=== PATIENT | male | born 1970 | race Caucasian/White ===

== ENCOUNTER 2021-10-14 06:07 | Inpatient (IN) | payer MEDICAID, OTHER ==
[~2021-10-14] VITALS: Ht 188 cm; Wt 106.6 kg
[2021-10-14] MEDS ORDERED: LORAZEPAM INJ 2 MG/ML VIAL IV ONE ×3 (07:00→10:30)
[2021-10-14] MEDS ORDERED: IV NS 0.9% 1,000 ML IV ONE (07:00)
[2021-10-14] MEDS ORDERED: LORAZEPAM INJ 2 MG/ML VIAL ONE ×3 (07:08→10:13)
--- NOTE | 2021-10-14 07:10 | NUR ---
ASSESSED PT ON BED AWAKE AND ALERT, AAXO4 MAORI SPEAKING ONLY, NOT IN RESPIRATORY DISTRESS, V/S STABLE, KEPT RESTED AND COMFORTABLE. WILL CONTINUE TO MONITOR.
--- NOTE | 2021-10-14 07:22 | NUR ---
BLOOD SENT TO LAB
[2021-10-14 07:35] LABS: BASOPHILS % (AUTO) 0.1 % (0.0-2.0); HEMATOCRIT 45 % (39-51); HEMOGLOBIN 15.5 g/dL (13.5-17.5); LYMPHOCYTES # (AUTO) 0.6 K/uL (0.8-4.8); LYMPHOCYTES % (AUTO) 3.4 % (20.0-44.0); MEAN CORPUSCULAR HGB CONC 35 g/dl (31.0-36.0); MEAN CORPUSCULAR VOLUME 91 fL (80-96); MONOCYTES # (AUTO) 1.4 K/uL (0.1-1.30); MONOCYTES % (AUTO) 7.6 % (2.0-12.0); NEUTROPHILS % (AUTO) 88.9 % (43.0-81.0); PLATELET COUNT (AUTO) 255 K/uL (150-450); RED BLOOD CELL COUNT(AUTO) 4.91 MIL/uL (4.5-6.0)
--- NOTE | 2021-10-14 07:50 | NUR ---
CALLED [facility] AND THEY WILL FAX CT RESULTS FOR PT.
--- NOTE | 2021-10-14 07:53 | NUR ---
[facility] CALLED AND NOTIFIED THAT THE PT HAS NOT BEEN THERE SINCE 2014
[2021-10-14 07:54] LABS: ALANINE AMINOTRANSFERASE 474 U/L (12-78); ALBUMIN 4.2 g/dL (3.4-5.0); ALCOHOL, BLOOD < 3 mg/dL (0-0); ALKALINE PHOSPHATASE 94 U/L (46-116); ASPARTATE AMINOTRANSFERASE 1780 U/L (15-37); BILIRUBIN,DIRECT 0.3 mg/dL (0.0-0.2); BILIRUBIN,TOTAL 1.8 mg/dL (0.2-1.0); CALCIUM, SERUM 8.4 mg/dL (8.5-10.1); CARBON DIOXIDE 20 mmol/L (21-32); CHLORIDE 108 mmol/L (98-107); CREATININE 2.6 mg/dL (0.6-1.3); GLUCOSE 98 mg/dL (74-106); POTASSIUM 3.9 mmol/L (3.5-5.1); SODIUM SERUM 143 mmol/L (136-145); TOTAL PROTEIN, SERUM 7.5 g/dL (6.4-8.2); UREA NITROGEN, BLOOD 32 mg/dL (7-18)
--- NOTE | 2021-10-14 07:54 | NUR ---
UNABLE TO PROVIDE URINE AT THIS TIME
[2021-10-14 07:57] LABS: ACETAMINOPHEN < 10 ug/ml (10-30)
--- NOTE | 2021-10-14 08:39 | NUR ---
PT IS WHEELED TO CT SCAN VIA GURNEY WITH [employer].
--- NOTE | 2021-10-14 08:40 | NUR ---
TAKEN TO CT
--- NOTE | 2021-10-14 08:48 | NUR ---
THE PATIENT IS TAKEN TO CT PER POLICY
--- NOTE | 2021-10-14 09:19 | NUR ---
PER DR ROJAS NOT TO ADMINISTER ATIVAN 2 MG IV, INSTEAD RECEIEVED AN ORDER OF ATIVAN 2 MG IV PUSH ONCE. THE ORDER IS READ BACK, VERIFIED. NOTED AND CARRIED OUT.
[2021-10-14] MEDS ORDERED: LORAZEPAM INJ 2 MG/ML VIAL IM ONE (09:30)
--- NOTE | 2021-10-14 09:30 | NUR ---
THE PATIENT IS TAKEN BACK FROM CT PER POLICY
[2021-10-14] MEDS ORDERED: IV LR 1000 ML 1,000 ML IV ONE (10:00)
[2021-10-14] MEDS ORDERED: ZIPRASIDONE MESYLATE 20 MG/VIAL VIAL IM ONE ×2 (10:30→10:31)
[2021-10-14 10:54] LABS: BILIRUBIN,URINE SMALL (NEGATIVE); COLOR,URINE BROWN (YELLOW); LEUKOCYTE ESTERASE ,URINE NEGATIVE (NEGATIVE); NITRITE, URINE NEGATIVE (NEGATIVE); PROTEIN,URINE 100 mg/dl (NEGATIVE); UGLUCOSE NEGATIVE (NEGATIVE); UROBILINOGEN,URINE 0.2 EU/dL (0.2)
[2021-10-14 11:15] LABS: BACTERIA,URINE Few /HPF (None Seen); RBC,URINE 21-50 /HPF (0-2); SQUAMOUS EPITHELIAL CELL,UR Few /HPF (None Seen)
--- NOTE | 2021-10-14 11:15 | NUR ---
needs telemetry bed. nursing dispatch supervisor aware.
--- NOTE | 2021-10-14 11:56 | NUR ---
THE PATIENT IS SLEEPING IN ER BED #12. EASILY RESPONSIVE TO VERBAL STIMULI. RESPIRATION REGULAR AND UNLABORED. REMAINS ATTACHED TO THE MONITOR.
[2021-10-14] MEDS ORDERED: IV NS 0.9% 1,000 ML IV SCH (13:00)
[2021-10-14] MEDS ORDERED: MAG HYDROX/AL HYDROX/SIMETH 30 ML UDC PO PRN (13:00)
[2021-10-14] MEDS ORDERED: ONDANSETRON HCL/PF 4 MG/2 ML VIAL IVP PRN (13:00)
[2021-10-14] MEDS: ASPIRIN EC 81 MG TABLET.DR PO SCH (13:00)
[2021-10-14] MEDS ORDERED: MAGNESIUM HYDROXIDE 30 ML UDC PO PRN (13:00)
[2021-10-14] MEDS ORDERED: LORAZEPAM INJ 2 MG/ML VIAL IV PRN (13:00)
[2021-10-14] MEDS: THIAMINE HCL 100 MG TABLET PO SCH (13:00)
[2021-10-14 13:15] VITALS: BP 102/62
--- NOTE | 2021-10-14 13:16 | NUR ---
report given to Mary IRBY
--- NOTE | 2021-10-14 13:17 | NUR ---
THE PATIENT IS TRANSFERED TO ROOM 327-2 IN STABLE CONDITION AND PER POLICY.
--- NOTE | 2021-10-14 15:00 | NUR ---
HAND IRONERFILLER BLENDER NOTES PATIENT ADMITTED TO UNIT AND CAME FROM ER VIA GURNEY. PATIENT CAME FROM SNF, POLICE OFFICERS AT BED SIDE. A/O X1, LETHARGIC. V/S TAKEN, STABLE. NO S/S OF PAIN NOTED AT THIS TIME. ON 3L OXYGEN VIA NC, NO DISTRESS OR SHORTNESS OF BREATH NOTED. IV LFA #20G, IV NS @ 150ML/HR, INTACT AND PATENT. PATIENT HAS EXTERNAL RUG CUTTER HELPER WITH CURRENT READING OF S.R. AND HR OF 85. SKIN ASSESSMENT DONE AND PICTURES TAKEN. FALL AND SAFETY MEASURE IN PLACE, BED ALARM ON, BED IN LOW AND LOCK POSITION, CALL LIGHT AND TABLE WITHIN EASY REACH, SIDE RAILS UP X2. WILL CONTINUE TO MONITOR.
--- NOTE | 2021-10-14 15:17 | NUR ---
SUBSCRIPTION CLERK NOTES UNABLE TO GIVE PO MEDS DUE TO PATIENT BEING LETHARGIC.
[2021-10-14 16:00] VITALS: BP 118/76
[2021-10-14] MEDS ORDERED: IV LR 500 ML IV ONE (16:00)
[2021-10-14] MEDS: ACETAMINOPHEN 325 MG TABLET PO PRN (16:45)
--- NOTE | 2021-10-14 19:20 | NUR ---
MEDICAL TRANSLATOR CLOSING NOTES PATIENT IS IN BED RESTING AWAKE. A/O X3, PATIENT STILL LETHARGIC. POLICE OFFICES AT BED SIDE. NO S/S OF PAIN NOTED AT THIS TIME. ON 3L OXYGEN VIA NC, NO DISTRESS OR SHORTNESS OF BREATH NOTED. IV LFA #20G, IV NS @ 150ML/HR, INTACT AND PATENT. PATIENT HAS EXTERNAL PATIENT PORTAL REPRESENTATIVE WITH CURRENT READING OF S.R. AND HR OF 86. FALL AND SAFETY MEASURE IN PLACE, BED ALARM ON, BED IN LOW AND LOCK POSITION, CALL LIGHT AND TABLE WITHIN EASY REACH, SIDE RAILS UP X2. WILL ENDORSE TO VACUUM CLEANER MECHANIC.
--- NOTE | 2021-10-14 19:30 | NUR ---
EMPLOYMENT LAW ATTORNEY OPENING NOTES RECEIVED PATIENT AWAKE IN BED. A/O X3. IN CUSTODY, POLICE OFFICERS AT BEDSIDE. NO S/S OF PAIN NOTED AT THIS TIME. ON 3 LPM OXYGEN VIA NC, NO SOB OR S/S OF RESPIRATORY DISTRESS NOTED. IV ACCESS LFA #20G, RUNNING LR @ 175 ML/HR, INTACT AND PATENT. EXTERNAL MONORAIL OPERATOR READING SR 85 BPM. SAFETY PRECAUTIONS IN PLACE. BED IN LOWEST LOCKED POSITION, HOB ELEVATED, SIDE RAILS UP X2, AND CALL LIGHT AND TABLE WITHIN REACH. WILL CONTINUE TO MONITOR.
[2021-10-14 20:00] VITALS: BP 135/92
[2021-10-15] VITALS: BP 120/67
[2021-10-15 03:37] LABS: BILIRUBIN,URINE SMALL (NEGATIVE); COLOR,URINE YELLOW (YELLOW); LEUKOCYTE ESTERASE ,URINE NEGATIVE (NEGATIVE); NITRITE, URINE NEGATIVE (NEGATIVE); PH,URINE 5.5 (5.0-8.0); PROTEIN,URINE 100 mg/dl (NEGATIVE); UGLUCOSE NEGATIVE (NEGATIVE); UROBILINOGEN,URINE 0.2 EU/dL (0.2)
[2021-10-15 03:42] LABS: BACTERIA,URINE Few /HPF (None Seen); SQUAMOUS EPITHELIAL CELL,UR Few /HPF (None Seen); URINE AMORPHOUS URATE Many /HPF (None Seen)
[2021-10-15 03:52] LABS: CREATININE, URINE 108.4 MG/DL (30.0-125.0); URINE TOTAL PROTEIN 265.4 mg/dL (0-11.9)
[2021-10-15] MEDS: ACETAMINOPHEN 325 MG TABLET PO PRN ×2 (03:55→18:17)
--- NOTE | 2021-10-15 03:55 | NUR ---
BUTTER MELTER NOTES C/P ARTHRITIS PAIN,TYLENOL 650MG PO GIVE PER PATIENT REQUEST.
[2021-10-15 04:00] VITALS: BP 160/97
--- NOTE | 2021-10-15 04:00 | NUR ---
ATHLETIC EVENTS SCORER NOTES TELE MONITOR ON STANDBY,PATIENT REFUSED.
--- NOTE | 2021-10-15 06:15 | NUR ---
MARINE ERECTOR NOTES HOSPITALIST WAS PAGE IN REGARDS TO PATIENT URINALYSIS RESULT,WITH NEW ORDER NOTED AND CARRIED OUT.
[2021-10-15 06:16] LABS: EOSINOPHIL,URINE None Seen
--- NOTE | 2021-10-15 06:45 | NUR ---
GIS DATABASE ADMINISTRATOR NOTES TO START WITH ROCEPHIN 1 GM IV DAILY,REPEAT U/A,AND START IV NS AT 100ML/HR RATE ORDERED.
[2021-10-15] MEDS ORDERED: IV NS 0.9% 1,000 ML IV PRN (07:00)
--- NOTE | 2021-10-15 07:30 | NUR ---
SIMULATION TECHNICIAN OPENING NOTES RECEIVED PATIENT AWAKE IN BED. A/O X3 UNDER POLICE CUSTODY. NO S/S OF PAIN NOTED AT THIS TIME. ON 3 LPM OXYGEN VIA NC, NO SOB OR S/S OF RESPIRATORY DISTRESS NOTED. WITH IV ACCESS AT LFA #20GWITH IVF NS AT 100ML/HR INFUSING WELL, IV ACCESS IS INTACT AND PATENT. SAFETY PRECAUTIONS IN PLACE. BED IN LOWEST LOCKED POSITION, HOB ELEVATED, SIDE RAILS UP X2, AND CALL LIGHT AND TABLE WITHIN REACH. WILL CONTINUE TO MONITOR.
[2021-10-15] MEDS ORDERED: FOLIC ACID 1 MG TABLET ONE (07:46)
[2021-10-15] MEDS ORDERED: CEFTRIAXONE 1 G VIAL ONE (07:55)
[2021-10-15 08:00] VITALS: BP 150/90
[2021-10-15 08:02] LABS: BASOPHILS % (AUTO) 0.2 % (0.0-2.0); EOSINOPHILS % (AUTO) 0.1 % (0.0-6.0); HEMATOCRIT 41 % (39-51); HEMOGLOBIN 14.3 g/dL (13.5-17.5); LYMPHOCYTES # (AUTO) 0.6 K/uL (0.8-4.8); LYMPHOCYTES % (AUTO) 5.2 % (20.0-44.0); MEAN CORPUSCULAR HGB CONC 35 g/dl (31.0-36.0); MEAN CORPUSCULAR VOLUME 91 fL (80-96); MONOCYTES # (AUTO) 0.9 K/uL (0.1-1.30); MONOCYTES % (AUTO) 7.2 % (2.0-12.0); NEUTROPHILS # (AUTO) 10.7 K/uL (1.8-8.9); NEUTROPHILS % (AUTO) 87.3 % (43.0-81.0); PLATELET COUNT (AUTO) 216 K/uL (150-450); RED BLOOD CELL COUNT(AUTO) 4.53 MIL/uL (4.5-6.0); WHITE BLOOD COUNT (AUTO) 12.3 K/uL (4.3-11.0)
[2021-10-15] MEDS: FOLIC ACID 1 MG TABLET PO SCH (08:24)
[2021-10-15] MEDS: ASPIRIN EC 81 MG TABLET.DR PO SCH (08:24)
[2021-10-15] MEDS: CEFTRIAXONE 1 G in IV D5W 50 ML IV SCH (08:24)
[2021-10-15] MEDS: PANTOPRAZOLE 40 MG TABLET.DR PO SCH (08:24)
[2021-10-15] MEDS: THIAMINE HCL 100 MG TABLET PO SCH (08:24)
[2021-10-15 08:30] LABS: CALCIUM, SERUM 7.7 mg/dL (8.5-10.1); CREATININE 3.7 mg/dL (0.6-1.3); MAGNESIUM 3.2 mg/dL (1.8-2.4); PHOSPHORUS 4.4 mg/dL (2.5-4.9)
[2021-10-15] MEDS ORDERED: IV LR 1000 ML 1,000 ML IV ONE (10:00)
[2021-10-15 16:00] VITALS: BP 156/95
[2021-10-15] MEDS: METOPROLOL TARTRATE 50 MG TABLET PO SCH (18:17)
[2021-10-15] MEDS: AMLODIPINE BESYLATE 10 MG TABLET PO SCH (18:17)
--- NOTE | 2021-10-15 19:15 | NUR ---
NIGHT AUDITOR CLOSING NOTES PATIENT AWAKE IN BED. A/O X3 UNDER POLICE CUSTODY. NO S/S OF PAIN NOTED AT THIS TIME. ON ROOM AIR SATURATING WELL AT 99%. NO SOB OR S/S OF RESPIRATORY DISTRESS NOTED. WITH IV ACCESS AT LFA #20G SALINE LOCKED, IV ACCESS IS INTACT AND PATENT. SAFETY PRECAUTIONS IN PLACE. BED IN LOWEST LOCKED POSITION, HOB ELEVATED, SIDE RAILS UP X2, AND CALL LIGHT AND TABLE WITHIN REACH. WILL ENDORSE TO NEXT SHIFT FOR DAVID.
--- NOTE | 2021-10-15 19:30 | NUR ---
SLD EDUCATIONAL AIDE NOTES OFF TELE,ON STANDBY.ON BED ALERT,ORIENTED X3,WITH EPISODE OF CONFUSION.IN CUSTODY, 2 OFFICER AT BEDSIDE.RIGHT WRIST ON HANDCUFF,NOTED MULTIPLE BRUISING ON UPPER AND LOWER EXTREMITIES.SALINE LOCK LEFT FORE ARM INTACT AND PATENT.WILL CONTINU TO MONITOR STATUS.
[2021-10-15 20:00] VITALS: BP 162/100
[2021-10-15 20:49] VITALS: BP 162/105
[2021-10-16] VITALS: BP 155/104
[2021-10-16 00:54] VITALS: BP 155/104
[2021-10-16] MEDS: ACETAMINOPHEN 325 MG TABLET PO PRN ×2 (02:32→08:11)
[2021-10-16 04:00] VITALS: BP 143/84
--- NOTE | 2021-10-16 06:51 | NUR ---
FIRE CONTROL SYSTEM INSTALLER NOTES STILL REFUSING TELE MONITOR.MORE ALERT,PITTING EDEMA ON BOTH ARMS NOTED.BLOOD PRESSURE ON THE HIGH SIDE,PER COMMUNICATIONS EDITOR,MAY BENEFIT FROM HEMODIALYSIS.IN NO ACUTE DISTRESS
[2021-10-16 06:53] LABS: CALCIUM, SERUM 7.8 mg/dL (8.5-10.1); CARBON DIOXIDE 18 mmol/L (21-32); CHLORIDE 104 mmol/L (98-107); CREATININE 4.2 mg/dL (0.6-1.3); GLUCOSE 145 mg/dL (74-106); PHOSPHORUS 4.9 mg/dL (2.5-4.9); POTASSIUM 3.9 mmol/L (3.5-5.1); SODIUM SERUM 136 mmol/L (136-145); UREA NITROGEN, BLOOD 50 mg/dL (7-18)
[2021-10-16 06:57] LABS: BASOPHILS % (AUTO) 0.3 % (0.0-2.0); EOSINOPHILS % (AUTO) 2.2 % (0.0-6.0); HEMATOCRIT 36 % (39-51); HEMOGLOBIN 12.9 g/dL (13.5-17.5); LYMPHOCYTES # (AUTO) 0.9 K/uL (0.8-4.8); LYMPHOCYTES % (AUTO) 11.5 % (20.0-44.0); MEAN CORPUSCULAR HGB CONC 36 g/dl (31.0-36.0); MEAN CORPUSCULAR VOLUME 89 fL (80-96); MONOCYTES # (AUTO) 0.6 K/uL (0.1-1.30); MONOCYTES % (AUTO) 7.7 % (2.0-12.0); NEUTROPHILS # (AUTO) 6.3 K/uL (1.8-8.9); NEUTROPHILS % (AUTO) 78.3 % (43.0-81.0); PLATELET COUNT (AUTO) 181 K/uL (150-450); RED BLOOD CELL COUNT(AUTO) 4.05 MIL/uL (4.5-6.0)
--- NOTE | 2021-10-16 07:35 | NUR ---
OFFICE MACHINE INSPECTOR OPENING NOTES RECEIVED PT ON BED AWAKE, VERBALLY RESPONSIVE. ON ROOM AIR TOLERATING WELL, NO SOB NOTED. TELE ON STANDBY, PT STILL REFUSES. IN CUSTODY, 2 OFFICER AT BEDSIDE. RIGHT WRIST ON HANDCUFF, NOTED MULTIPLE BRUISING ON UPPER AND LOWER EXTREMITIES.SALINE LOCK LEFT FOREARM INTACT AND PATENT. SAFETY MEASURES IN PLACE, BED LOCKED AND IN LOWEST POSITION, SR UP X2, CALL LIGHT PLACED WITHIN EASY REACH. WILL CONTINUE TO MONITOR PT.
[2021-10-16 08:00] VITALS: BP 104/52
[2021-10-16] MEDS: ASPIRIN EC 81 MG TABLET.DR PO SCH (08:09)
[2021-10-16] MEDS: PANTOPRAZOLE 40 MG TABLET.DR PO SCH (08:09)
[2021-10-16] MEDS: THIAMINE HCL 100 MG TABLET PO SCH (08:10)
[2021-10-16] MEDS: AMLODIPINE BESYLATE 10 MG TABLET PO SCH ×2 (08:11→16:20)
[2021-10-16] MEDS: METOPROLOL TARTRATE 50 MG TABLET PO SCH ×2 (08:11→16:20)
[2021-10-16] MEDS: CEFTRIAXONE 1 G in IV D5W 50 ML IV SCH (08:12)
[2021-10-16] MEDS: FOLIC ACID 1 MG TABLET PO SCH (08:12)
[2021-10-16 08:49] LABS: CREATINE KINASE, TOTAL > 1000 U/L (39-308)
--- NOTE | 2021-10-16 10:07 | NUR ---
WOUND CARE CONSULT: PT PRESENTS WITH MULTIPLE DRY ABRASIONS, JEFF TO SCALP, LEFT KNEE DRY ABRASION AND LEFT HEEL WOUND, ALL PRESENT ON ADMISSION. RECOMMEND DPM CONSULT. DR HARMON NOTIFIED. DISCUSSED SKIN PROTECTION WITH NURSING STAFF. OFFICERS AT BEDSIDE AND HANDCUFF NOTED TO RT WRIST. MD IN AGREEMENT WITH PLAN OF CARE.
--- NOTE | 2021-10-16 11:44 | NUR ---
RN NOTE DR JUAN SANDOVAL VERBALLY ORDERED 1/2 NS @125 ML/HR. ORDER READ BACK AND CARRIED OUT.
[2021-10-16 12:00] VITALS: BP 154/97
[2021-10-16] MEDS ORDERED: IV 1/2NS 1000 ML 1,000 ML IV PRN (12:00)
--- NOTE | 2021-10-16 16:50 | NUR ---
EXECUTIVE MARKETING ASSISTANT CLOSING NOTES PATIENT ON BED AWAKE, A/O X3 . ON ROOM AIR TOLERATING WELL, NO SOB NOTED. TELE ON STANDBY, PT STILL REFUSES. D/C POLICE CUSTODY. MULTIPLE BRUISING ON UPPER AND LOWER EXTREMITIES. NON PITTING EDEMA ON BUE NOTED. SALINE LOCK LEFT FOREARM INFILTRATED, UNABLE TO RE INSERT NEW LINE AFTER MULTIPLE ATTEMPTS. WAITING FOR ML INSERTION. SAFETY MEASURES IN PLACE, BED LOCKED AND IN LOWEST POSITION, SR UP X2, CALL LIGHT PLACED WITHIN EASY REACH. WILL ENDORSE TO NEXT SHIFT.
--- NOTE | 2021-10-16 17:23 | NUR ---
RN NOTES PT'S IV LINE INFILTRATED, UNABLE TO REINSERT NEW LINE AFTER MULTIPLE ATTEMPTS. MD MADE AWARE WITH ORDER FOR MIDLINE INSERTION.
[2021-10-16] MEDS: IV NS 0.9% 1,000 ML IV PRN (21:51)
--- NOTE | 2021-10-16 22:45 | NUR ---
RN NOTES, PATIENT C/O GENERALIZED PAIN, STATES TYLENOL DOESN'T HELP, INFORMED MELISSA HASKINS ROOM SERVICE ATTENDANT FILAMENT TESTER AND SHE REPLIED WITH ORDER FOR NORCO 5/325 Q6H PRN FOR PAIN, ORDER NOTED AND CARRIED OUT.
[2021-10-16] MEDS: HYDROCODONE/APAP 5/325MG TABLET PO PRN (23:52)
[2021-10-17] MEDS: IV NS 0.9% 1,000 ML IV PRN ×4 (02:02→17:42)
--- NOTE | 2021-10-17 04:05 | NUR ---
RN NOTES, INFORMED MELISSA HASKINS JEWISH THOUGHT PROFESSOR COLLECTOR OF AQUARIUM SPECIMENS ABOUT THE CRICITAL RESULTS FOR CK-MB OF 87.3, AND SHE ASKED IF PATIENT WAS IN FLUIDS, REPORTED TO HER THAT PT IS IN NS .09% AT 250ML/H AND SHE REPLIED WITH NNO.
[2021-10-17] MEDS: HYDROCODONE/APAP 5/325MG TABLET PO PRN ×3 (06:24→19:50)
--- NOTE | 2021-10-17 07:00 | NUR ---
RN Note Received patient AO x 3, able to responds all stimuli. Patient does no c/o pain or discomfort at this time. Respiratory even and unlabored on room air. Skin is warm to touch, keep clean/dry. Intact midline on left upper arm and good patency. Call light within reach, keep lower bed position and elevated HOB, will continue to monitor.
[2021-10-17 07:55] LABS: CALCIUM, SERUM 7.6 mg/dL (8.5-10.1); POTASSIUM 4.7 mmol/L (3.5-5.1)
[2021-10-17 08:00] VITALS: BP 132/83
[2021-10-17] MEDS: FOLIC ACID 1 MG TABLET PO SCH (08:41)
[2021-10-17] MEDS: METOPROLOL TARTRATE 50 MG TABLET PO SCH ×2 (08:41→17:43)
[2021-10-17] MEDS: CEFTRIAXONE 1 G in IV D5W 50 ML IV SCH (08:41)
[2021-10-17] MEDS: THIAMINE HCL 100 MG TABLET PO SCH (08:41)
[2021-10-17] MEDS: AMLODIPINE BESYLATE 10 MG TABLET PO SCH ×2 (08:42→17:43)
[2021-10-17] MEDS: ASPIRIN EC 81 MG TABLET.DR PO SCH (08:42)
[2021-10-17] MEDS: PANTOPRAZOLE 40 MG TABLET.DR PO SCH (08:45)
--- NOTE | 2021-10-17 10:30 | NUR ---
patient noticed CK level 09628 today, trending down CK level. No MD notified.
[2021-10-17 12:00] VITALS: BP 134/95
[2021-10-17 16:00] VITALS: BP 154/89
--- NOTE | 2021-10-17 16:58 | NUR ---
SS consult requested for homelessness. SW will follow up at a later time.
--- NOTE | 2021-10-17 18:55 | NUR ---
RN Note Patient in bed, remains AO x 4. Respiration even and unlabored on room air. Skin is warm to touch, no s/s of adverse reaction observed from antibiotic. Kept lower position of the bed. Call light within reach, will continue to monitor.
--- NOTE | 2021-10-17 19:25 | NUR ---
ASPHALT MACHINE OPERATOR OPENING NOTE PATIENT RECEIVED AWAKE IN BED. A/OX3. NO S/S OF DISTRESS, BREATHING SYMMETRICAL. PATIENT STATES HE CURRENTLY HAS PAIN, SO I WILL F/U WITH MD ORDERS FOR PAIN MANAGEMENT. DAY SHIFT NURSE ENDORSED PATIENT TO ME STATING HE HAD DECLINED HAVING THE TELE MONITOR PLACED ON HIM. I WILL RE-EDUCATE PATIENT AND ENCOURAGE HIM TO USE IT FOR HIS SAFETY AND HEALTH. SAFETY MEASURES IN PLACE: BED AT LOWEST POSITION, RAILS UP X2, CALL BURKS WITHIN REACH. WILL CONTINUE TO MONITOR PATIENT.
--- NOTE | 2021-10-17 20:15 | NUR ---
PRODUCTION CONTROL TECHNOLOGIST NOTE ATTEMPTED TO ENCOURAGE PATIENT TO HAVE THE TELE MONITOR APPLIED FOR HIS SAFETY BY RE-EDUCATION. PATIENT STATED HE DID NOT FEEL COMFORTABLE WITH THE TELE MONITOR BEING APPLIED. WILL CONTINUE TO MONITOR PATIENT. PATIENT'S IS CURRENTLY STABLE SHOWING NO S/S OF DISTRESS; VS REVEAL AN ELEVATED BP ALBEIT HOVERING AROUND SAME LEVEL (153/98) -- ALL OTHER VS STABLE. HIS TOTAL CK HAS BEEN TRENDING DOWN; HE IS NOT DIAPHORETIC NOR DOES HE COMPLAIN OF CHEST PAIN. PAIN NOTED EARLIER WAS GENERALIZED, AND CONTROLLED BY MD ORDERS. WILL CONTINUE TO MONITOR PATIENT CLOSELY.
[2021-10-17 20:42] VITALS: BP 153/98
[2021-10-18 00:37] VITALS: BP 128/67
[2021-10-18] MEDS: HYDROCODONE/APAP 5/325MG TABLET PO PRN ×4 (01:58→21:13)
[2021-10-18 04:17] VITALS: BP 127/85
--- NOTE | 2021-10-18 06:11 | NUR ---
MUFFLER HAND CLOSING NOTE PATIENT ASLEEP IN BED. A/OX3. NO S/S OF DISTRESS, BREATHING SYMMETRICAL. PATIENT HAS CONTINUED TO DECLINE THE USE OF A TELE MONITOR EVEN AFTER HAVING BEEN RE-EDUCATED AND ENCOURAGED TO USE MONITOR THROUGHOUT SHIFT. MATILDE MIDLINE PATENT AND INTACT. SAFETY MEASURES IN PLACE: BED AT LOWEST POSITION, RAILS UP X2, CALL BURKS WITHIN REACH. WILL ENDORSE TO DAY SHIFT FOR DAVID.
[2021-10-18] MEDS: PANTOPRAZOLE 40 MG TABLET.DR PO SCH (07:44)
--- NOTE | 2021-10-18 07:45 | NUR ---
RN TRANSPLANT OPENING NOTE PATIENT ON BED, AWAKE. A/OX3. ON ROOM AIR, NO SOB NOTED. NO S/S OF ACUTE DISTRESS NOTED, BRTEATHING EVEN AND UNLABORED. STILL REFUSES THE USE OF A TELE MONITOR EVEN AFTER HAVING BEEN RE-EDUCATED AND ENCOURAGED TO USE MONITOR. MATILDE MIDLINE PATENT AND INTACT. NS @250ML/HR RUNNING. SAFETY MEASURES IN PLACE: BED AT LOWEST AND LOCKED POSITION, SIDE RAILS UP X2, CALL LIGHT PLACED WITHIN REACH. WILL CONTINUE TO MONITOR PT.
[2021-10-18 08:00] VITALS: BP 154/79
[2021-10-18] MEDS: CEFTRIAXONE 1 G in IV D5W 50 ML IV SCH (08:33)
--- NOTE | 2021-10-18 08:39 | NUR ---
MAHAMED OTSILVERIO NORCO 5/325 MG GIVEN FOR C/O GENERALIZED BODY PAIN.
[2021-10-18] MEDS: FOLIC ACID 1 MG TABLET PO SCH (08:41)
[2021-10-18] MEDS: ASPIRIN EC 81 MG TABLET.DR PO SCH (08:41)
[2021-10-18] MEDS: THIAMINE HCL 100 MG TABLET PO SCH (08:42)
[2021-10-18] MEDS: AMLODIPINE BESYLATE 10 MG TABLET PO SCH ×2 (08:42→16:29)
[2021-10-18] MEDS: METOPROLOL TARTRATE 50 MG TABLET PO SCH ×2 (08:42→16:29)
--- NOTE | 2021-10-18 09:10 | NUR ---
RN NOTES WENT TO PATIENT ROOM TO DO TREATMENT ON LEFT HEEL WOUND BUT PT STRONGLY REFUSED, DOESN'T EVEN WANT ME TO CHECK THE SITE. HE SAID HE JUST WANT TO LEAVE IT ALONE AND LET IT DRY. EXPLAINED RISKS AND BENEFITS BUT STILL REFUSED. WILL CONTINUE TO ENCOURAGE PT TO COMPLY WITH TX PLAN.
[2021-10-18] MEDS: IV NS 0.9% 1,000 ML IV PRN ×3 (09:46→22:51)
[2021-10-18 11:36] LABS: CALCIUM, SERUM 8.4 mg/dL (8.5-10.1); CREATININE 3.9 mg/dL (0.6-1.3)
[2021-10-18 11:47] LABS: ALBUMIN 2.7 g/dL (3.4-5.0); BILIRUBIN,TOTAL 0.5 mg/dL (0.2-1.0); TOTAL PROTEIN, SERUM 5.8 g/dL (6.4-8.2)
[2021-10-18 12:00] VITALS: BP 126/68
--- NOTE | 2021-10-18 12:17 | NUR ---
SS Consult for homeless. SW attempted to interview pt. He was short and refused to answer questions. Pt. denied everything and stated, I dont want to talk about anything right now. Pt. expressed that he does not want to be bothered and to come back another time. SW spoke with nurse Carter and there is no discharge plan at this time. SW will attempt again another time before discharge.
[2021-10-18 16:00] VITALS: BP 132/85
--- NOTE | 2021-10-18 18:41 | NUR ---
LEAD CUSTODIAN CLOSING NOTES PATIENT ON BED, AWAKE. A/OX3. REMAINS ON ROOM AIR, NO SOB NOTED. NO S/S OF ACUTE DISTRESS NOTED, BREATHING EVEN AND UNLABORED. STILL REFUSES THE USE OF TELE MONITOR. MATILDE MIDLINE PATENT AND INTACT, WITH NS @250ML/HR RUNNING. ALL DUE MEDS GIVEN TOLERATED WELL. NORCO GIVEN FOR C/O GENERALIZED PAIN. SAFETY MEASURES IN PLACE: BED LOCKED AND IN LOWEST POSITION, SIDE RAILS UP X2, CALL LIGHT PLACED WITHIN REACH. WILL ENDORSE TO NEXT SHIFT.
--- NOTE | 2021-10-18 19:18 | NUR ---
CONTINUITY OF CARE Patient is awake, in bed. MATILDE midline intact, IVF infusing. Leads off for Tele monitor, as per report patient refused. Skin assessment refused, education given, risk and benefits of wound treatment explained, patient still strongly refused care. Denies pain. No respiratory distress.
[2021-10-18 20:00] VITALS: BP 134/77
--- NOTE | 2021-10-18 21:13 | NUR ---
PAIN Patient c/o generalized body pain /, PRN [place] given. Will reassess pain level.
--- NOTE | 2021-10-19 00:13 | NUR ---
NOT PARTICIPATING TO PLAN OF CARE Patient refused to check vital signs, education given. Patient still strongly refused.
[2021-10-19] MEDS: HYDROCODONE/APAP 5/325MG TABLET PO PRN ×4 (03:24→21:57)
[2021-10-19] MEDS: IV NS 0.9% 1,000 ML IV PRN ×4 (03:26→18:57)
--- NOTE | 2021-10-19 06:38 | NUR ---
END OF SHIFT REPORT Patient is A/O x3. Generalized body pain controlled with [place]. MATILDE midline intact, IVF infusing. Voiding urine adequately. On IV abx. Afebrile. Refused am lab. Refused Tele monitor. Refused skin reassessment Declined education. Will endorse to oncoming RN.
[2021-10-19 06:45] VITALS: BP 151/90
--- NOTE | 2021-10-19 07:30 | NUR ---
ASSISTANT PROFESSOR OF NURSING OPENING NOTE PATIENT ON BED, AWAKE. A/OX3. ON ROOM AIR, NO SOB NOTED. NO S/S OF ACUTE DISTRESS NOTED, BRTEATHING EVEN AND UNLABORED. STILL REFUSES THE USE OF A TELE MONITOR EVEN AFTER HAVING BEEN RE-EDUCATED AND ENCOURAGED TO USE MONITOR. MATILDE MIDLINE PATENT AND INTACT. NS @250ML/HR RUNNING. SAFETY MEASURES IN PLACE: BED AT LOWEST AND LOCKED POSITION, SIDE RAILS UP X2, CALL LIGHT PLACED WITHIN REACH. WILL CONTINUE TO MONITOR .
[2021-10-19] MEDS: AMLODIPINE BESYLATE 10 MG TABLET PO SCH ×2 (08:46→16:33)
[2021-10-19] MEDS: CEFTRIAXONE 1 G in IV D5W 50 ML IV SCH (08:46)
[2021-10-19] MEDS: ASPIRIN EC 81 MG TABLET.DR PO SCH (08:47)
[2021-10-19] MEDS: FOLIC ACID 1 MG TABLET PO SCH (08:47)
[2021-10-19] MEDS: METOPROLOL TARTRATE 50 MG TABLET PO SCH ×2 (08:48→16:34)
[2021-10-19] MEDS: THIAMINE HCL 100 MG TABLET PO SCH (08:48)
[2021-10-19] MEDS: PANTOPRAZOLE 40 MG TABLET.DR PO SCH (08:50)
[2021-10-19 11:28] LABS: ALBUMIN 2.4 g/dL (3.4-5.0); BILIRUBIN,TOTAL 0.4 mg/dL (0.2-1.0); POTASSIUM 4.9 mmol/L (3.5-5.1); TOTAL PROTEIN, SERUM 5.5 g/dL (6.4-8.2)
[2021-10-19 11:35] LABS: CALCIUM, SERUM 8.3 mg/dL (8.5-10.1); CREATININE 3.6 mg/dL (0.6-1.3)
--- NOTE | 2021-10-19 18:30 | NUR ---
RN NOTES PATIENT REFUSED SKIN CHECK AND TREATMENTS.
--- NOTE | 2021-10-19 18:37 | NUR ---
MS RN CLOSING NOTE PATIENT ON BED, AWAKE. A/OX3. ON ROOM AIR, NO SOB NOTED. NO S/S OF ACUTE DISTRESS NOTED, BRTEATHING EVEN AND UNLABORED. MATILDE MIDLINE PATENT AND INTACT. NS @250ML/HR RUNNING. SAFETY MEASURES IN PLACE: ALL DUE MEDS GIVEN.BED AT LOWEST AND LOCKED POSITION, SIDE RAILS UP X2, CALL LIGHT PLACED WITHIN REACH. WILL ENDORSE INCOMING SHIFT FOR DAVID.
[2021-10-19 20:00] VITALS: BP 145/85
[2021-10-19] MEDS: IV NS 0.9% 1,000 ML IV SCH (20:09)
[2021-10-19 20:34] VITALS: BP 145/85
--- NOTE | 2021-10-19 20:47 | NUR ---
INJ BED ALERT AND ORIENATED X4 SPPECH CLEAR ANSWERS QUESTION APPROIP MOVING ALL EXTREMITIES CALL LIGHT WHTHIN REACH URINAL AT THE BEDSIDE
[2021-10-20] MEDS: IV NS 0.9% 1,000 ML IV SCH ×4 (01:04→22:21)
[2021-10-20] MEDS: HYDROCODONE/APAP 5/325MG TABLET PO PRN ×4 (04:14→22:21)
--- NOTE | 2021-10-20 04:19 | NUR ---
RN CLOSING NOTES: ALERT AND ORIENTATED x4 IN ROOM THIS 12 HOURS AMBULATES TO THE BATHROOM STEADY ON HIS LEGS MEDICATED FOR GENERALIZED BODY PAINx2 THIS 12 HOURS TIMES 2200 AND 0400 nORCO EFFECTIVE FOR THE RELIEF OF PAIN PATIENT WITH A FLAT AFFECT DRINKS COPIOUS AMOUNTS JUICE AND WATER THROUGH THE SHIFT
--- NOTE | 2021-10-20 07:40 | NUR ---
RN OPENING NOTES. PT IN BED AWAKE, A&OX3. NO S/S OF RESPIRATORY DISTRESS OR DISCOMFORT AT THIS TIME. LEFT UPPER ARM MIDLINE INTACT & PATENT WITH NS RUNNING @ 150ML/HR. SAFETY PRECAUTIONS IN PLACE: BED LOCKED & IN LOWEST POSITION, CALL LIGHT WITHIN REACH. WILL CONTINUE TO MONITOR PT AT THIS TIME
[2021-10-20] MEDS: AMLODIPINE BESYLATE 10 MG TABLET PO SCH ×2 (08:35→16:33)
[2021-10-20] MEDS: FOLIC ACID 1 MG TABLET PO SCH (08:35)
[2021-10-20] MEDS: METOPROLOL TARTRATE 50 MG TABLET PO SCH ×2 (08:36→16:33)
[2021-10-20] MEDS: ASPIRIN EC 81 MG TABLET.DR PO SCH (08:36)
[2021-10-20] MEDS: CEFTRIAXONE 1 G in IV D5W 50 ML IV SCH (08:36)
[2021-10-20] MEDS: PANTOPRAZOLE 40 MG TABLET.DR PO SCH (08:36)
[2021-10-20] MEDS: THIAMINE HCL 100 MG TABLET PO SCH (08:36)
[2021-10-20 08:51] VITALS: BP 143/83
[2021-10-20 16:10] VITALS: BP 162/87
--- NOTE | 2021-10-20 18:29 | NUR ---
RN CLOSING NOTES PT IN BED, AWAKE AT THIS TIME. PT PARTICIPATED IN SELF CARE AND ALL NEEDS WERE MET. PAIN FOR GENERALIZED BODY PAIN WAS MONITORED WITH NORCO 5/325 1TAB Q6H. NO S/S OF RESPIRATORY DISTRESS OR DISCOMFORT AT THIS TIME. SAFETY MEASURES IN PLACE: BED LOCKED, LOWEST POSITION AND CALL LIGHT WITHIN REACH. WILL ENDORSE TO THE WHITE SIDEWALL TIRE BUFFER NURSE FOR DAVID.
--- NOTE | 2021-10-20 19:15 | NUR ---
Patient is in room, resting in bed watching TV. A&Ox3. Calm, denies any needs at this time. No signs of distress. NS currently infusing at 150cc/hr to MATILDE midline. Urinal shows light yellow clear urine. Will continue to monitor pt.
--- NOTE | 2021-10-20 19:30 | NUR ---
Patient refused to get blood drawn again. Says only 1 am triage rn is allowed to try on him because he is tired of being poked and everyone keeps missing. Attempted to get blood from midline but unsuccessful and patient is very anxious at the site of blood, restless and moaning because it "freaks me out" -per patient. Addendum: 10/20/21 at 2007 by JUAN JOSÉ POWELL RN asked lab to be put on specific phlebotomists list if she is here in AM.
[2021-10-20 20:00] VITALS: BP 147/80
[2021-10-21] MEDS: HYDROCODONE/APAP 5/325MG TABLET PO PRN ×3 (04:29→17:45)
[2021-10-21] MEDS: IV NS 0.9% 1,000 ML IV SCH ×4 (05:26→21:47)
--- NOTE | 2021-10-21 06:34 | NUR ---
RN CLOSING NOTES Patient A&Ox3. VSS overnight. Only complains of pain x2 relieved by PRN [place], but reports his whole body is sore. Mild swelling to BUE noted. Tolerating IV fluids well and urinating a lot. NS at 150cc/hr infusing to MATILDE midline. No signs of distress. All needs met at this time.
[2021-10-21 08:00] VITALS: BP 147/80
[2021-10-21] MEDS: CEFTRIAXONE 1 G in IV D5W 50 ML IV SCH (09:11)
[2021-10-21] MEDS: PANTOPRAZOLE 40 MG TABLET.DR PO SCH (09:12)
[2021-10-21] MEDS: FOLIC ACID 1 MG TABLET PO SCH (09:12)
[2021-10-21] MEDS: ASPIRIN EC 81 MG TABLET.DR PO SCH (09:12)
[2021-10-21] MEDS: METOPROLOL TARTRATE 50 MG TABLET PO SCH ×2 (09:12→17:46)
[2021-10-21] MEDS: THIAMINE HCL 100 MG TABLET PO SCH (09:12)
[2021-10-21] MEDS: AMLODIPINE BESYLATE 10 MG TABLET PO SCH ×2 (09:13→17:45)
[2021-10-21 15:55] VITALS: BP 145/72
--- NOTE | 2021-10-21 19:07 | NUR ---
RN OPENING NOTES PATIENT IN BED RESTING, AWAKE. A/O X3. NO S/S OF PAIN NOTED AT THIS TIME. ON ROOM AIR, NO DISTRESS OR SHORTNESS OF BREATH NOTED. IV ON MATILDE MIDLINE NS@ 100ML/HR. FALL AND SAFETY MEASURES IN PLACE, BED ALARM ON, BED IN LOW AND LOCK POSITION, CALL LIGHT AND TABLE WITHIN EASY REACH, SIDE RAILS UP X2. WILL CONTINUE TO MONITOR.
--- NOTE | 2021-10-21 19:26 | NUR ---
RN CLOSING NOTES PATIENT IN BED RESTING, AWAKE. A/O X3. NO S/S OF PAIN NOTED AT THIS TIME. ON ROOM AIR, NO DISTRESS OR SHORTNESS OF BREATH NOTED. IV ON MATILDE MIDLINE NS@ 100ML/HR. FALL AND SAFETY MEASURES IN PLACE, BED ALARM ON, BED IN LOW AND LOCK POSITION, CALL LIGHT AND TABLE WITHIN EASY REACH, SIDE RAILS UP X2. WILL ENDORSE TO SPINNING FRAME TENDER
--- NOTE | 2021-10-21 19:31 | NUR ---
MS OPENING NOTE PATIENT RECEIVED AWAKE IN BED. PATIENT PRESENTS FLAT AFFECT. A/OX3. NO S/S OF DISTRESS, BREATHING SYMMETRICAL. MATILDE MID W/ NS @100ML/HR. PREVIOUS NURSE GAVE REPORT TO ME THAT PATIENT IS CONTINUING TO DECLINE PARTICIPATION AND COOPERATION IN HIS TREATMENT (I.E. WOUND TREATMENT IN THIS CASE). I WILL CONTINUE TO RE-EDUCATE AND ENCOURAGE PATIENT AT EVERY ENCOUNTER TO BE COMPLIANT FOR HIS HEALTH BENEFIT AND FULL RECOVERY. WILL CONTINUE TO MONITOR PATIENT THROUGHOUT SHIFT. SAFETY MEASURES IN PLACE: BED AT LOWEST POSITION, RAILS UP X2, CALL BURKS WITHIN REACH.
[2021-10-21 20:00] VITALS: BP 141/77
--- NOTE | 2021-10-21 21:45 | NUR ---
MS RN NOTE I WENT TO ADMINISTER PATIENT'S NEXT IV SOLUTION DUE (NS @100ML/HR). IN FLUSHING THE LINE TO ENSURE PATENCY RESISTANCE WAS MET. TWO FLUSHES WERE ADMINISTERED WITH GREAT RESISTANCE. I F/U W/ MY CHARGE NURSE, CHIRAG, WHO CAME TO VERIFY ADMINISTERING TWO ADDITIONAL FLUSHES HERSELF. RESISTANCE WAS YET AGAIN MET. IT WAS EXPLAINED TO THE PATIENT THAT WE SHOULD ATTEMPT TO INSERT A NEW IV, POSSIBLY IN THE RIGHT ARM, BUT PATIENT WAS VERY APPREHENSIVE ABOUT ADDITIONAL LINES. PATIENT HAS BEEN RESISTANT TO FOLLOWING MEDICAL TREATMENT PLAN. WILL F/U WITH MORNING DOCTOR TO SEE ABOUT ANOTHER ORDER TO INSERT A NEW MIDLINE.
[2021-10-22] MEDS: HYDROCODONE/APAP 5/325MG TABLET PO PRN ×4 (00:31→20:53)
--- NOTE | 2021-10-22 06:41 | NUR ---
MS RN CLOSING NOTE PATIENT IS AWAKE IN BED. A/OX3. NO S/S OF DISTRESS, BREATHING SYMMETRICAL; MATILDE MIDLINE OCCLUDED (SEE PREVIOUS NOTE). PER DR. ROSARIO, NEW IV WILL BE PLACED BY ICU/ER NURSE. PAIN MANAGED BY MD ROGERS. SAFETY MEASURES IN PLACE: BED AT LOWEST POSITION, RAILS UP X2, CALL BURKS WITHIN REACH. WILL ENDORSE TO NEXT SHIFT FOR DAVID.
[2021-10-22] MEDS: THIAMINE HCL 100 MG TABLET PO SCH (09:34)
[2021-10-22] MEDS: PANTOPRAZOLE 40 MG TABLET.DR PO SCH (09:35)
[2021-10-22] MEDS: ASPIRIN EC 81 MG TABLET.DR PO SCH (09:35)
[2021-10-22] MEDS: FOLIC ACID 1 MG TABLET PO SCH (09:35)
[2021-10-22] MEDS: METOPROLOL TARTRATE 50 MG TABLET PO SCH ×2 (09:36→17:29)
[2021-10-22] MEDS: AMLODIPINE BESYLATE 10 MG TABLET PO SCH ×2 (09:37→17:30)
[2021-10-22] MEDS: IV NS 0.9% 1,000 ML IV SCH ×2 (10:57→17:30)
[2021-10-22 14:10] LABS: BASOPHILS # (AUTO) 0.1 K/uL (0.0-0.2); BASOPHILS % (AUTO) 0.9 % (0.0-2.0); EOSINOPHILS % (AUTO) 0.6 % (0.0-6.0); HEMATOCRIT 39 % (39-51); HEMOGLOBIN 13.4 g/dL (13.5-17.5); LYMPHOCYTES # (AUTO) 1.1 K/uL (0.8-4.8); LYMPHOCYTES % (AUTO) 12.5 % (20.0-44.0); MEAN CORPUSCULAR HGB CONC 35 g/dl (31.0-36.0); MEAN CORPUSCULAR VOLUME 90 fL (80-96); MONOCYTES # (AUTO) 0.6 K/uL (0.1-1.30); MONOCYTES % (AUTO) 7.5 % (2.0-12.0); NEUTROPHILS # (AUTO) 6.8 K/uL (1.8-8.9); NEUTROPHILS % (AUTO) 78.5 % (43.0-81.0); PLATELET COUNT (AUTO) 252 K/uL (150-450); WHITE BLOOD COUNT (AUTO) 8.6 K/uL (4.3-11.0)
[2021-10-22 14:29] LABS: CREATININE 3.4 mg/dL (0.6-1.3); POTASSIUM 4.7 mmol/L (3.5-5.1)
[2021-10-22 14:34] LABS: ALBUMIN 2.9 g/dL (3.4-5.0); BILIRUBIN,TOTAL 0.6 mg/dL (0.2-1.0); TOTAL PROTEIN, SERUM 6.1 g/dL (6.4-8.2)
--- NOTE | 2021-10-22 19:20 | NUR ---
MS RN OPENING NOTE PATIENT RECEIVED IN BED AWAKE. A/OX3. PATIENT SHOWS NO S/S OF DISTRESS, BREATHING SYMMETRICAL. MATILDE MIDLINE IN PLACE AND HAS REGAINED PATENCY FROM DAY SHIFT. SAFETY MEASURES IN PLACE: BED AT LOWEST POSITION, RAILS UP X2, CALL BURKS WITHIN REACH. WILL CONTINUE TO FOLLOW PATIENT THROUGHOUT SHIFT.
--- NOTE | 2021-10-22 19:37 | NUR ---
RN CLOSING NOTES PATIENT IN BED RESTING, AWAKE. A/O X3. NO S/S OF PAIN NOTED AT THIS TIME. ON ROOM AIR, NO DISTRESS OR SHORTNESS OF BREATH NOTED. IV ON MATILDE MIDLINE NS@ 100ML/HR. FALL AND SAFETY MEASURES IN PLACE, BED ALARM ON, BED IN LOW AND LOCK POSITION, CALL LIGHT AND TABLE WITHIN EASY REACH, SIDE RAILS UP X2. WILL ENDORSE TO WEB CONTENT EXECUTIVE.
[2021-10-22 20:26] VITALS: BP 137/79
[2021-10-23] MEDS: IV NS 0.9% 1,000 ML IV SCH ×3 (03:05→23:08)
[2021-10-23] MEDS: HYDROCODONE/APAP 5/325MG TABLET PO PRN ×4 (03:18→21:11)
--- NOTE | 2021-10-23 06:33 | NUR ---
MS RN CLOSING NOTE PATIENT AWAKE IN BED. A/OX3. NO S/S OF DISTRESS, BREATHING SYMMETRICAL. SAFETY MEASURES IN PLACE. BED AT LOWEST POSITION, RAILS UP X2, CALL BURKS WITHIN REACH. WILL ENDORSE TO NEXT SHIFT FOR DAVID.
--- NOTE | 2021-10-23 07:25 | NUR ---
MS RN NOTE PATIENT REFUSED MORNING BLOOD DRAW. ENDORSED TO NEXT SHIFT NURSE. ALSO, WAS UNABLE TO TAKE WOUND PHOTOS D/T ONE CAMERA BROKEN AND THE OTHER CURRENTLY UNABLE TO WORK. ENDORSED TO NEXT SHIFT NURSE IN CASE LATTER CAMERA BECOMES FUNCTIONAL.
[2021-10-23] MEDS: PANTOPRAZOLE 40 MG TABLET.DR PO SCH (07:30)
--- NOTE | 2021-10-23 07:40 | NUR ---
RN OPENING NOTE- PATIENT IN BED RESTING, AWAKE. A/O X4. DENIES PAIN. ON ROOM AIR, NO DISTRESS OR SHORTNESS OF BREATH NOTED. INTERACTIVE / CALM/ IV ON MATILDE MIDLINE NS@ 100ML/HR. FALL AND SAFETY MEASURES IN PLACE, BED ALARM ON, BED IN LOW AND LOCK POSITION, CALL LIGHT AND TABLE WITHIN EASY REACH, SIDE RAILS UP X2. WILL CONTINUE TO MONITOR.
[2021-10-23 08:00] VITALS: BP 124/69
[2021-10-23] MEDS: THIAMINE HCL 100 MG TABLET PO SCH (09:27)
[2021-10-23] MEDS: METOPROLOL TARTRATE 50 MG TABLET PO SCH ×2 (09:27→16:34)
[2021-10-23] MEDS: ASPIRIN EC 81 MG TABLET.DR PO SCH (09:27)
[2021-10-23] MEDS: FOLIC ACID 1 MG TABLET PO SCH (09:27)
[2021-10-23] MEDS: AMLODIPINE BESYLATE 10 MG TABLET PO SCH ×2 (09:27→16:34)
[2021-10-23 15:25] LABS: BASOPHILS % (AUTO) 0.4 % (0.0-2.0); EOSINOPHILS % (AUTO) 1.2 % (0.0-6.0); HEMATOCRIT 40 % (39-51); HEMOGLOBIN 13.7 g/dL (13.5-17.5); LYMPHOCYTES # (AUTO) 1.3 K/uL (0.8-4.8); LYMPHOCYTES % (AUTO) 19.4 % (20.0-44.0); MEAN CORPUSCULAR HGB CONC 35 g/dl (31.0-36.0); MEAN CORPUSCULAR VOLUME 91 fL (80-96); MONOCYTES # (AUTO) 0.6 K/uL (0.1-1.30); MONOCYTES % (AUTO) 8.5 % (2.0-12.0); NEUTROPHILS # (AUTO) 4.7 K/uL (1.8-8.9); NEUTROPHILS % (AUTO) 70.5 % (43.0-81.0); PLATELET COUNT (AUTO) 292 K/uL (150-450); RED BLOOD CELL COUNT(AUTO) 4.35 MIL/uL (4.5-6.0); WHITE BLOOD COUNT (AUTO) 6.7 K/uL (4.3-11.0)
--- NOTE | 2021-10-23 15:44 | NUR ---
SW attempted to interview pt. Pt. denies to answer questions. When asked about discharge, pt. stated that he might be able to go back home with family. Pt. did not want to sign homeless waiver and denied resources.
[2021-10-23 16:14] LABS: CALCIUM, SERUM 8.6 mg/dL (8.5-10.1); CREATININE 3.2 mg/dL (0.6-1.3); POTASSIUM 4.9 mmol/L (3.5-5.1)
[2021-10-23 16:20] LABS: BILIRUBIN,TOTAL 0.7 mg/dL (0.2-1.0); TOTAL PROTEIN, SERUM 6.2 g/dL (6.4-8.2)
[2021-10-23 16:36] LABS: ALBUMIN 3.2 g/dL (3.4-5.0)
--- NOTE | 2021-10-23 19:30 | NUR ---
MS RN OPENING NOTES RECEIVED PATIENT IN BED, AWAKE, ALERT AND ORIENTED X4. ON ROOM AIR TOLERATING WELL, WITH EQUAL AND UNLABORED BREATHING. NO SOB, NO S/S OF RESPIRATORY DISTRESS NOTED. WITH NO COMPLAINTS OF PAIN OR DISCOMFORT. IV ACCESS ON MATILDE MIDLINE NS @100ML/HR. SAFETY MEASURES ENSURED WITH BED LOCKED AND AT LOWEST POSITION. CALL LIGHT WITHIN REACH AT ALL TIMES. WILL CONTINUE TO MONITOR.
[2021-10-23 20:00] VITALS: BP_SYST 147; BP_DIAS 73; BP_DIAS 77
[2021-10-24] MEDS: HYDROCODONE/APAP 5/325MG TABLET PO PRN ×4 (03:17→21:51)
--- NOTE | 2021-10-24 06:19 | NUR ---
MS RN CLOSING NOTES PATIENT IN BED, AWAKE, ALERT AND ORIENTED X4. ON ROOM AIR TOLERATING WELL, WITH EQUAL AND UNLABORED BREATHING. NO SOB, NO S/S OF RESPIRATORY DISTRESS NOTED. WITH NO COMPLAINTS OF PAIN OR DISCOMFORT. IV ACCESS ON MATILDE MIDLINE. PATENT AND INTACT. NS @100ML/HR INFUSING WELL. SAFETY MEASURES ENSURED WITH BED LOCKED AND AT LOWEST POSITION. CALL LIGHT WITHIN REACH AT ALL TIMES. WILL ENDORSE TO AM SHIFT NURSE FOR CONTINUITY OF CARE.
[2021-10-24 08:00] VITALS: BP 150/80
--- NOTE | 2021-10-24 08:01 | NUR ---
MS/RN OPENING NOTES RECEIVED PATIENT IN BED, AWAKE, ALERT AND ORIENTED X4. ON ROOM AIR TOLERATING WELL, NO S/S OF RESPIRATORY DISTRESS NOTED. WITH NO COMPLAINTS OF PAIN OR DISCOMFORT. IV ACCESS ON L UPPER ARM MIDLINE. PATENT AND INTACT. NS @100ML/HR INFUSING WELL. SAFETY MEASURES ENSURED WITH BED LOCKED AND AT LOWEST POSITION. CALL LIGHT WITHIN REACH AT ALL TIMES. WILL CONTINUE TO MONITOR PATIENT.
[2021-10-24] MEDS: PANTOPRAZOLE 40 MG TABLET.DR PO SCH (08:22)
[2021-10-24] MEDS: METOPROLOL TARTRATE 50 MG TABLET PO SCH ×2 (08:38→17:13)
[2021-10-24] MEDS: FOLIC ACID 1 MG TABLET PO SCH (08:38)
[2021-10-24] MEDS: ASPIRIN EC 81 MG TABLET.DR PO SCH (08:38)
[2021-10-24] MEDS: THIAMINE HCL 100 MG TABLET PO SCH (08:39)
[2021-10-24] MEDS: AMLODIPINE BESYLATE 10 MG TABLET PO SCH ×2 (08:39→17:13)
[2021-10-24] MEDS: IV NS 0.9% 1,000 ML IV SCH ×2 (08:39→20:38)
[2021-10-24 10:00] LABS: CALCIUM, SERUM 8.6 mg/dL (8.5-10.1); POTASSIUM 4.8 mmol/L (3.5-5.1)
[2021-10-24 10:07] LABS: ALBUMIN 3.1 g/dL (3.4-5.0); BILIRUBIN,TOTAL 0.7 mg/dL (0.2-1.0); TOTAL PROTEIN, SERUM 6.4 g/dL (6.4-8.2)
[2021-10-24 16:00] VITALS: BP 135/92
--- NOTE | 2021-10-24 18:52 | NUR ---
MS/RN CLOSING NOTES PATIENT IN BED, AWAKE, ALERT AND ORIENTED X4. ON ROOM AIR TOLERATING WELL, NO S/S OF RESPIRATORY DISTRESS NOTED. WITH NO COMPLAINTS OF PAIN OR DISCOMFORT. IV ACCESS ON L UPPER ARM MIDLINE. PATENT AND INTACT. NS @100ML/HR INFUSING WELL. SAFETY MEASURES ENSURED WITH BED LOCKED AND AT LOWEST POSITION. CALL LIGHT WITHIN REACH AT ALL TIMES. ALL NEEDS MET. KEPT PATIENT COMFORTABLE ALL THROUGHOUT THE SHIFT. WILL ENDORSE TO THE NEXT SHIFT FOR DAVID.
--- NOTE | 2021-10-24 19:45 | NUR ---
MS RN OPENING NOTES Patient appears to have more energy than days prior and pt. agrees. he is up and walking around more. Pt does report that his body (generalized) still feels sore/painful. will manage pain and give PRN Alden as per MD order. NS currently running at 100cc/hr to [facility] which is patent and intact. Will continue to monitor pt.
[2021-10-24 20:11] VITALS: BP 131/79
[2021-10-25] MEDS: HYDROCODONE/APAP 5/325MG TABLET PO PRN (03:58)
[2021-10-25] MEDS: IV NS 0.9% 1,000 ML IV SCH (06:08)
--- NOTE | 2021-10-25 06:35 | NUR ---
Patient has been A&Ox4, stable. Patient is very short with staff and easily annoyed when talked to. Mostly 1 word answers. Patient c/o generalized pain and medicated with PRN [place] as per MD order. Since 604 pt. is refusing IVF when positioning his arm in a certain way the IV machine shows too much pressure, but patient refuses to move arm in different position. Clearly no resistance on IV pump when in different positions. Per patient, " I want to sleep, I don't care let me sleep in this position for a little while. I'm not going to move." Explained risks and benefits -pt. would not give a Verbal response. Will resume when patient is awake or in different position. Patient sleeping well at this time with no signs of distress.
--- NOTE | 2021-10-25 07:45 | NUR ---
MS RN OPENING NOTES RECEIVED PT IN BED, AWAKE, A/O X4. VERBALLY RESPONSIVE, NO SIGNS OF ACUTE DISTRESS. ON ROOM AIR, NO SOB NOTED. MATILDE ML INTACT AND PATENT, WAS ABLE TO CONVINCE PT TO RUN IVF OF NS @100/HR. NO C/O PAIN OR DISCOMFORT AT THIS TIME. SAFETY MEASURES IN PLACE. BED LOCKED AND IN LOWEST POSITION, SR UP X2, CALL LIGHT PLACED WITHIN EASY REACH, WILL CONTINUE TO MONITOR.
[2021-10-25] MEDS: PANTOPRAZOLE 40 MG TABLET.DR PO SCH (07:51)
[2021-10-25 08:00] VITALS: BP 158/85
[2021-10-25] MEDS: ASPIRIN EC 81 MG TABLET.DR PO SCH (08:23)
[2021-10-25] MEDS: THIAMINE HCL 100 MG TABLET PO SCH (08:23)
[2021-10-25] MEDS: FOLIC ACID 1 MG TABLET PO SCH (08:23)
[2021-10-25 08:27] VITALS: BP 158/85
[2021-10-25] MEDS: AMLODIPINE BESYLATE 10 MG TABLET PO SCH (08:27)
[2021-10-25] MEDS: METOPROLOL TARTRATE 50 MG TABLET PO SCH (08:27)
--- NOTE | 2021-10-25 12:34 | NUR ---
"SS Consult: homeless SW met with pt. for interview. Pt. does not want to answer questions regarding his family or personal life. SW met with pt. regarding discharge plan. Pt. requested a TAP card and directions to get to [facility] [place] [facility]. SW gave pt. TAP card and printed directions on how to get to [facility] [[address], [place] [address]]. Pt. signed homeless waiver and SW placed it in pt.'s chart. SW provided homeless resources and pt. accepted. Resources Provided: Winter Shelters: SPA 2 | [facility] Address: Confidential (call for location ) Population Served: Coed # of Beds: 57 SPA 4 | [facility] Provider: [facility] Last Address: [address] [place] [address] # of Beds: 49 Population Served: Coed SPA 6 | [facility] Provider: Home at Last Address: [address] [place] [address] # of Beds: 49 Population Served: Coed [place] [facility] Provider: Sandra Park [facility] Address: [address] [facility] [address] # of Beds: 20 Population Served: Women [facility] Facility Provider: Home at Last Address: [address] [facility] [address] # of Beds: 30 Population Served: Women SPA 8 | [facility] Provider: [facility] [place] Address: [address] [facility] [address] # of Beds: 65 Population Served: Coed Year-round shelters: [place] [place] [address] ; [place] [facility] [address] [place] [address]; [place] [facility] [address] [facility] [address] Winter Shelters: [place] Ginger Curry Provider: [facility] [place] Address: [address] [facility], [address] # of Beds: 47 Population Served: [facility] 6 | [facility] Denisse Melendrez [place] Provider: Home at Last Address: [address] [place] [address], [address] # of Beds: 66 Population Served: [facility] Kasandra [place] Provider: [facility] Address: [address] [facility], [address] # of Beds: 56 Population Served: [facility] Servando [place] Provider: [facility] Address: [address] [facility], [address] # of Beds: 49 Population Served: [facility] 8 | [facility] Provider: First to Serve Address: [address] [facility]. [place], [address] # of Beds: 37 Population Served: [facility] Hygiene: [place] [facility]: [address] [facility] ; [place] [facility] [address] [facility] ; [facility] [address] [facility] . Food Resources: [place] [employer] at [facility]- [address] [facility]; Meet Each Need with Dignity ([facility]) [address] [facility]; [facility] [address] [facility]; [facility] 8576 [facility]. Mental Health resources provided: [facility] [address] [place] [address] ; [facility] [address] [facility] [address], [place] [address] ; [place] [facility] Mental [facility] [address] [place] [address] ; [facility] [place] [address] Healthcare Clinics: [facility] [address] [facility], [address] [place]. [place] ; [facility] [address] [facility] [address] [place] [address]; [facility] [address] [facility] [place] [phone]) [phone] Counseling--Outpatient [facility] [address] [facility], [place] [address] (Specializes in in-depth psychotherapy for emotional distress: anxiety, depression, interpersonal conflicts, life transitions, childhood abuse) [facility] [address] [place] [address] (Assist with solving problem marital difficulties, separation & divorce, aging parents, & grief, chronic & terminal illness) [facility] [address] [place] [address] (Deal with loss & grief, anxiety, marital difficulties) Homebound/Mental Health Services [address] [facility], [address] [place] [address] (Provide in-home mental services to people who are incapable of leaving their homes) [facility] of the Elderly Senior Service/Resource Center [address] [facility] [place] [address] [facility] [address] [place], [place] [phone] PSYCHIATRIC OUTPATIENT SERVICES [facility] Partial Hospitalization and Intensive Outpatient Program (Managed Care and [place] Only)[address] [facility] [phone] [facility] Partial Hospitalization and Outpatient Zedezde[address] [facility]. [address] [place], [place] [phone] [facility] [id number] [facility] [address] [place], [place] [phone] [facility] Partial Hospitalization and Outpatient [id number] [facility] ([place], [phone] Substance Abuse resources provided included: [facility] Substance Abuse Self-Helpline ([facility]) ; CRI -HELP [address] [facility]. [place] [phone] ; [facility] Treatment [place] [address] [facility] [address] ; [facility] Rehabilitation Program [address] [place] [address] ; [facility] [address] [facility] [address] ; [facility] 4940 [facility] [phone] ; [place] [facility] 909 [facility] [phone] ; [facility] Substance Abuse Helpline([facility] ; [facility] ; [facility] [place]; [facility] [place]; Cri-Help [place]; [facility] [place]; [facility] [place]; [place] [place]; [facility]; [facility] [place]; Alcoholics Anonymous -SFV; Eb-Ssgh-Iojnomr ; Marijuana Anonymous -SFV; Narcotics Anonymous [email or web address];"
--- NOTE | 2021-10-25 13:10 | NUR ---
CAREER DEVELOPMENT SPECIALIST NOTES PATIENT DISCHARGED. PER PT HE WILL GO TO [facility] FIRST TO GET HIS BELONGINGS. IV ACCESS ON MATILDE REMOVED, NO BLEEDING NOTED, COVERED WITH DRY DRESSING. ARM NAME BAND REMOVED. PATIENT REFUSED BODY ASSESSMENT AND REFUSED PHOTOS TO BE TAKEN. HOME MEDS RETURNED TO PT, PT DOESN'T HAVE ANY OTHER BELONGINGS, FORM SIGNED BY PT. HEALTH TEACHINGS AND DISCHARGE INSTRUCTIONS PROVIDED BUT PT DOESN'T SEEM TO CARE. VITAL SIGNS TAKEN, STABLE AND RECORDED. PT LEFT UNIT @1300, ASSISTED BY KIN FOWLER TO THE [employer], VIA W/C, WILL TAKE THE BUS TO GO TO [facility]. SSW RANULFO SPOKE WITH PT PRIOR D/C REGARDING HOMELESSNESS, TAP CARD GIVEN TO PT AND LIST OF LONGTERM HOMES ALSO GIVEN TO PT BY SSW, NOTED THAT PT LEFT THE LIST FOR SHELTERS, TRIED TO GIVE IT TO HIM BUT PT SAID HE DOESN'T WANT TO TAKE IT. LEFT IN STABLE CONDITION. CN AWARE OF DISCHARGE.
== END 2021-10-25 13:49 | disposition home or self-care (01) | DRG 917 ==
LOC: ER 06:13 → TELE 12:30 → MED 10-19 11:17
PROVIDERS: ATTEND Internal Medicine
PROC: 05HA33Z Insertion of Infusion Device into Left Brachial Vein, Percutaneous Approach (ICD-10-PCS; principal; 2021-10-16)
DX: T43.621A Poisoning by amphetamines, accidental (unintentional), initial encounter (principal); N17.0 Acute kidney failure with tubular necrosis; G92.8 Other toxic encephalopathy; I21.A1 Myocardial infarction type 2; M62.82 Rhabdomyolysis; Z20.822 Contact with and (suspected) exposure to COVID-19; Y92.9 Unspecified place or not applicable; I10 Essential (primary) hypertension; S90.812A Abrasion, left foot, initial encounter; X58.XXXA Exposure to other specified factors, initial encounter; F15.90 Other stimulant use, unspecified, uncomplicated; E83.41 Hypermagnesemia; K76.0 Fatty (change of) liver, not elsewhere classified; Z53.20 Procedure and treatment not carried out because of patient's decision for unspecified reasons; S09.90XA Unspecified injury of head, initial encounter; I51.7 Cardiomegaly
CPT/HCPCS: 36415; 70450-TC; 71045-TC; 76700-TC; 80048-TC; 80053-TC; 80076-TC; 81001; 82550-TC; 82553; 82570-TC; 83735-TC; 84100-TC; 84155-TC; 84300-TC; 84484-TC; 85025-TC; 86704; 86705; 86706; 86803; 87340; G0378; G0480; J0696; J2060; J3486; J3490; J7030; J7060; J7120